=== PATIENT | female | born 1995 | race Caucasian/White ===

== ENCOUNTER 2018-07-10 22:22 | Emergency (ER) | payer MEDICAID, OTHER ==
[~2018-07-10] VITALS: Ht 167.6 cm; Wt 103.0 kg
[2018-07-10 22:41] LABS: BILIRUBIN,URINE NEGATIVE (NEG); CLARITY,URINE CLOUDY; COLOR,URINE RED; NITRITE,URINE NEGATIVE (NEG); PROTEIN,URINE 30 mg/dL (NEG-TRACE)
[2018-07-10 22:53] LABS: BACTERIA,URINE MODERATE /HPF (0-FEW); RBC,URINE TNTC /HPF (0-2); SQUAMOUS EPITHELIAL CELL,UR MOD /LPF
[2018-07-10 23:13] LABS: BASO % 1 % (0-3); EOS # 0.1 x10^3/uL (0.0-0.7); EOS % 1 % (0-3); HEMATOCRIT 42.6 % (36.0-47.0); HEMOGLOBIN 14.5 g/dL (12.0-15.5); LYMPH # 1.8 x10^3/uL (1.0-4.8); LYMPH % 22 % (24-48); MEAN CORPUSCULAR HEMOGLOBIN 31 pg (25-35); MEAN CORPUSCULAR HGB CONC 34 g/dL (31-37); MEAN CORPUSCULAR VOLUME 90 fL (79-100); MONO # 0.7 x10^3/uL (0.0-1.1); MONO % 8 % (0-9); NEUT # 5.7 x10^3uL (1.8-7.7); NEUT % 68 % (31-73); PLATELET COUNT 232 x10^3/uL (140-400); RED BLOOD COUNT 4.72 x10^6/uL (3.50-5.40); RED CELL DISTRIBUTION WIDTH 12.9 % (11.5-14.5); WHITE BLOOD COUNT 8.3 x10^3/uL (4.0-11.0)
[2018-07-10 23:17] LABS: CALCIUM 8.8 mg/dL (8.5-10.1); CREATININE 0.8 mg/dL (0.6-1.0); GFR 87.4; POTASSIUM 3.9 mmol/L (3.5-5.1)
[2018-07-10 23:18] LABS: PROTHROMBIN TIME PATIENT 13.3 SEC (11.7-14.0)
--- NOTE | 2018-07-10 23:19 | PHYS DOC ---
Past Medical History Past Medical History: No Pertinent History Past Surgical History: No Surgical History Alcohol Use: None Drug Use: None Adult General Chief Complaint Chief Complaint: VAGINAL BLEEDING HPI HPI Patient is a 23-year-old female who presents with complaint of vaginal bleeding and cramping that started earlier this morning. Patient states that she has passed enough blood to soaked through a pad. She states that initially it was just spotting but has progressively increased throughout the day. She also reports to lower abdominal cramping that currently she rates at a 3 out of 10. She denies any nausea or vomiting. Review of Systems Review of Systems Constitutional: Denies fever or chills [] Respiratory: Denies cough or shortness of breath [] Cardiovascular: No additional information not addressed in HPI [] GI: Denies abdominal pain, nausea, vomiting, bloody stools or diarrhea [] : Complains of pelvic pain and vaginal bleeding[] Neurologic: Denies headache, focal weakness or sensory changes [] All other systems were reviewed and found to be within normal limits, except as documented in this note. Allergies Allergies Allergies Coded Allergies Type Severity Reaction Last Updated Verified No Known Drug Allergies 05/09/15 No Physical Exam Physical Exam Constitutional: Well developed, well nourished, no acute distress, non-toxic appearance. [] HENT: Normocephalic, atraumatic, bilateral external ears normal, oropharynx moist, no oral exudates, nose normal. [] Eyes: PERRLA, EOMI, conjunctiva normal, no discharge. [] Neck: Normal range of motion, no tenderness, supple, no stridor. [] Cardiovascular: Regular rate and rhythm[] Lungs & Thorax: Bilateral breath sounds clear to auscultation [] Abdomen: Bowel sounds normal, soft, no tenderness. [] Skin: Warm, dry, no erythema, no rash. [] Extremities: No tenderness, no cyanosis, no clubbing, ROM intact, no edema. [] Neurologic: Alert and oriented X 3, normal motor function, normal sensory function, no focal deficits noted. [] Current Patient Data Vital Signs Vital Signs Date Time Temp Pulse Resp B/P (MAP) Pulse Ox O2 Delivery O2 Flow Rate FiO2 07/11/18 01:09 98.2 85 15 111/71 98.2 07/11/18 00:00 96 Room Air Lab Values Laboratory Tests Test 07/10/18 22:24 07/10/18 22:34 07/10/18 23:00 Urine Collection Type Unknown Urine Color Red Urine Clarity Cloudy Urine pH 6.0 Urine Specific [place] 1.020 Urine Protein 30 mg/dL (NEG-TRACE) Urine Glucose (UA) Negative mg/dL (NEG) Urine Ketones (Stick) Negative mg/dL (NEG) Urine Blood Large (NEG) Urine Nitrite Negative (NEG) Urine Bilirubin Negative (NEG) Urine Urobilinogen Dipstick 1.0 mg/dL (0.2 mg/dL) Urine Leukocyte Esterase Small (NEG) Urine RBC Tntc /HPF (0-2) Urine WBC 1-4 /HPF (0-4) Urine Squamous Epithelial Cells Mod /LPF Urine Bacteria Moderate /HPF (0-FEW) Urine Mucus Mod /LPF POC Urine HCG, Qualitative Hcg positive (Negative) White Blood Count 8.3 x10^3/uL (4.0-11.0) Red Blood Count 4.72 x10^6/uL (3.50-5.40) Hemoglobin 14.5 g/dL (12.0-15.5) Hematocrit 42.6 % (36.0-47.0) Mean Corpuscular Volume 90 fL (79-100) Mean Corpuscular Hemoglobin 31 pg (25-35) Mean Corpuscular Hemoglobin Concent 34 g/dL (31-37) Red Cell Distribution Width 12.9 % (11.5-14.5) Platelet Count 232 x10^3/uL (140-400) Neutrophils (%) (Auto) 68 % (31-73) Lymphocytes (%) (Auto) 22 % (24-48) L Monocytes (%) (Auto) 8 % (0-9) Eosinophils (%) (Auto) 1 % (0-3) Basophils (%) (Auto) 1 % (0-3) Neutrophils # (Auto) 5.7 x10^3uL (1.8-7.7) Lymphocytes # (Auto) 1.8 x10^3/uL (1.0-4.8) Monocytes # (Auto) 0.7 x10^3/uL (0.0-1.1) Eosinophils # (Auto) 0.1 x10^3/uL (0.0-0.7) Basophils # (Auto) 0.0 x10^3/uL (0.0-0.2) Prothrombin Time 13.3 SEC (11.7-14.0) Prothrombin Time INR 1.0 (0.8-1.1) Sodium Level 141 mmol/L (136-145) Potassium Level 3.9 mmol/L (3.5-5.1) Chloride Level 104 mmol/L (98-107) Carbon Dioxide Level 25 mmol/L (21-32) Anion Gap 12 (6-14) Blood Urea Nitrogen 12 mg/dL (7-20) Creatinine 0.8 mg/dL (0.6-1.0) Estimated GFR (Cockcroft-Gault) 87.4 BUN/Creatinine Ratio 15 (6-20) Glucose Level 87 mg/dL (70-99) Calcium Level 8.8 mg/dL (8.5-10.1) Total Bilirubin 0.3 mg/dL (0.2-1.0) Aspartate Amino Transferase (AST) 14 U/L (15-37) L Alanine Aminotransferase (ALT) 18 U/L (14-59) Alkaline Phosphatase 67 U/L (46-116) Total Protein 7.3 g/dL (6.4-8.2) Albumin 4.0 g/dL (3.4-5.0) Albumin/Globulin Ratio 1.2 (1.0-1.7) Laboratory Tests 07/10/18 23:00 Laboratory Tests 07/10/18 23:00 EKG EKG [] Radiology/Procedures Radiology/Procedures [] Impressions: PROCEDURE: OB <14 WKS W/TV CLINICAL HISTORY: vag bleeding today, cramping COMPARISON: None available. TECHNIQUE: transabdominal and endovaginal sonography was performed FINDINGS: The uterus measures 7.1 x 5 x 5.8 cm An intrauterine gestational sac is present, although mildly oblong in shape. An embryo is identified .Cardiac activity is visualized and documented at a rate of 157 beats per minute. Small subchorionic hemorrhage is seen inferiorly. Based on a crown rump length averaging 1.16 cm, the estimated gestational age is 7 weeks, 2 days. Estimated date of delivery is 02/24/2019. The left ovary measures 2.3 x 1.5 x 1.8 cm. The right ovary measures 3.1 x 1.7 x 2.2 cm. Flow is seen bilaterally to the ovaries. There is no pelvic free fluid. IMPRESSION: 1. Single live intrauterine gestation with mean sonographic age of 7 weeks, 2 days. The estimated date of delivery is 02/24/2019. Of note, the gestational sac is mildly oblong, possibly an incidental finding. 2. Small subchorionic hemorrhage is seen. 3. No abnormal adnexal masses. Electronically signed by: Adalberto Cooper MD (07/11/2018 12:35 AM) [facility] Course & Med Decision Making Course & Med Decision Making Pertinent Labs and Imaging studies reviewed. (See chart for details) [] Dragon Disclaimer Dragon Disclaimer This electronic medical record was generated, in whole or in part, using a voice recognition dictation system. Departure Departure Impression: Primary Impression: Threatened Disposition: 01 HOME, SELF-CARE Condition: STABLE Referrals: ELKE ROGERS MD (PCP) Patient Instructions: Threatened Miscarriage SABIHA MACIAS Jr. DO Jul 10, 2018 23:19
[2018-07-10 23:23] LABS: ALBUMIN/GLOBULIN RATIO 1.2 (1.0-1.7); TOTAL BILIRUBIN 0.3 mg/dL (0.2-1.0); TOTAL PROTEIN 7.3 g/dL (6.4-8.2)
--- NOTE | 2018-07-11 00:38 | RAD ---
CLINICAL HISTORY: vag bleeding today, cramping COMPARISON: None available. TECHNIQUE: transabdominal and endovaginal sonography was performed FINDINGS: The uterus measures 7.1 x 5 x 5.8 cm An intrauterine gestational sac is present, although mildly oblong in shape. An embryo is identified .Cardiac activity is visualized and documented at a rate of 157 beats per minute. Small subchorionic hemorrhage is seen inferiorly. Based on a crown rump length averaging 1.16 cm, the estimated gestational age is 7 weeks, 2 days. Estimated date of delivery is 02/24/2019. The left ovary measures 2.3 x 1.5 x 1.8 cm. The right ovary measures 3.1 x 1.7 x 2.2 cm. Flow is seen bilaterally to the ovaries. There is no pelvic free fluid. IMPRESSION: 1. Single live intrauterine gestation with mean sonographic age of 7 weeks, 2 days. The estimated date of delivery is 02/24/2019. Of note, the gestational sac is mildly oblong, possibly an incidental finding. 2. Small subchorionic hemorrhage is seen. 3. No abnormal adnexal masses. Electronically signed by: Adalberto Cooper MD (07/11/2018 12:35 AM) [facility]
[2018-07-11 01:09] VITALS: BP 111/71
[2018-07-11 01:30] VITALS: BP 119/59
== END 2018-07-11 01:46 | disposition home or self-care (01) ==
LOC: ER 22:22
DX: O20.0 Threatened abortion (principal); Z3A.01 Less than 8 weeks gestation of pregnancy
CPT/HCPCS: 36415; 36430; 76801; 76817; 80053; 81001; 81025; 85025; 85610; 86850; 86900; 86901; 87086; 99285; J2791

== ENCOUNTER 2019-02-22 23:42 | Emergency (ER) | payer OTHER ==
[~2019-02-22] VITALS: Ht 167.6 cm; Wt 103.0 kg
--- NOTE | 2019-02-23 00:23 | PHYS DOC ---
Past Medical History Past Medical History: No Pertinent History Past Surgical History: No Surgical History Alcohol Use: None Drug Use: None Adult General Chief Complaint Chief Complaint: ABDOMINAL PAIN IN HPI HPI Patient is a 23-year-old female who presents with report that she thinks she is leaking amniotic fluid. Patient is a A1 at 16 weeks gestational age and she states that over the last 24 hours she has noticed that her underwear are getting damp. She denies any abdominal pain, cramping or vaginal bleeding. She just states that every time she goes to the bathroom, she notices that her underwear or damp.[] Review of Systems Review of Systems Constitutional: Denies fever or chills [] Respiratory: Denies cough or shortness of breath [] Cardiovascular: No additional information not addressed in HPI [] GI: Denies abdominal pain, nausea, vomiting, bloody stools or diarrhea [] : Denies dysuria or hematuria [] Neurologic: Denies headache, focal weakness or sensory changes [] All other systems were reviewed and found to be within normal limits, except as documented in this note. Allergies Allergies Allergies Coded Allergies Type Severity Reaction Last Updated Verified No Known Drug Allergies 05/09/15 No Physical Exam Physical Exam Constitutional: Well developed, well nourished, no acute distress, non-toxic appearance. [] HENT: Normocephalic, atraumatic, bilateral external ears normal, oropharynx moist, no oral exudates, nose normal. [] Eyes: PERRLA, EOMI, conjunctiva normal, no discharge. [] Neck: Normal range of motion, no tenderness, supple, no stridor. [] Cardiovascular: Regular rate and rhythm[] Lungs & Thorax: Bilateral breath sounds clear to auscultation [] Abdomen: Bowel sounds normal, soft, no tenderness. [] Skin: Warm, dry, no erythema, no rash. [] Extremities: No tenderness, no cyanosis, no clubbing, ROM intact. [] Neurologic: Alert and oriented X 3, no focal deficits noted. [] Current Patient Data Vital Signs Vital Signs Date Time Temp Pulse Resp B/P (MAP) Pulse Ox O2 Delivery O2 Flow Rate FiO2 02/23/19 02:10 78 14 121/65 (83) 98 Room Air 02/23/19 00:10 97.6 97.6 Lab Values Laboratory Tests Test 02/23/19 00:05 02/23/19 00:20 02/23/19 00:48 Urine Collection Type Unknown Urine Color Yellow Urine Clarity Clear Urine pH 6.5 Urine Specific [place] 1.015 Urine Protein Negative mg/dL (NEG-TRACE) Urine Glucose (UA) Negative mg/dL (NEG) Urine Ketones (Stick) Negative mg/dL (NEG) Urine Blood Negative (NEG) Urine Nitrite Negative (NEG) Urine Bilirubin Negative (NEG) Urine Urobilinogen Dipstick 1.0 mg/dL (0.2 mg/dL) Urine Leukocyte Esterase Negative (NEG) Urine RBC Occ /HPF (0-2) Urine WBC 1-4 /HPF (0-4) Urine Squamous Epithelial Cells Mod /LPF Urine Bacteria Moderate /HPF (0-FEW) Urine Mucus Slight /LPF White Blood Count 7.9 x10^3/uL (4.0-11.0) Red Blood Count 4.00 x10^6/uL (3.50-5.40) Hemoglobin 12.7 g/dL (12.0-15.5) Hematocrit 35.5 % (36.0-47.0) L Mean Corpuscular Volume 89 fL (79-100) Mean Corpuscular Hemoglobin 32 pg (25-35) Mean Corpuscular Hemoglobin Concent 36 g/dL (31-37) Red Cell Distribution Width 13.0 % (11.5-14.5) Platelet Count 201 x10^3/uL (140-400) Neutrophils (%) (Auto) 65 % (31-73) Lymphocytes (%) (Auto) 25 % (24-48) Monocytes (%) (Auto) 8 % (0-9) Eosinophils (%) (Auto) 1 % (0-3) Basophils (%) (Auto) 0 % (0-3) Neutrophils # (Auto) 5.1 x10^3/uL (1.8-7.7) Lymphocytes # (Auto) 2.0 x10^3/uL (1.0-4.8) Monocytes # (Auto) 0.7 x10^3/uL (0.0-1.1) Eosinophils # (Auto) 0.1 x10^3/uL (0.0-0.7) Basophils # (Auto) 0.0 x10^3/uL (0.0-0.2) Sodium Level 142 mmol/L (136-145) Potassium Level 3.8 mmol/L (3.5-5.1) Chloride Level 108 mmol/L (98-107) H Carbon Dioxide Level 23 mmol/L (21-32) Anion Gap 11 (6-14) Blood Urea Nitrogen 10 mg/dL (7-20) Creatinine 0.7 mg/dL (0.6-1.0) Estimated GFR (Cockcroft-Gault) 102.0 BUN/Creatinine Ratio 14 (6-20) Glucose Level 89 mg/dL (70-99) Calcium Level 9.0 mg/dL (8.5-10.1) Total Bilirubin 0.2 mg/dL (0.2-1.0) Aspartate Amino Transferase (AST) 11 U/L (15-37) L Alanine Aminotransferase (ALT) 14 U/L (14-59) Alkaline Phosphatase 49 U/L (46-116) Total Protein 6.9 g/dL (6.4-8.2) Albumin 3.5 g/dL (3.4-5.0) Albumin/Globulin Ratio 1.0 (1.0-1.7) Amniotic Fluid Swab Test Negative Laboratory Tests 02/23/19 00:20 Laboratory Tests 02/23/19 00:20 EKG EKG [] Radiology/Procedures Radiology/Procedures [] Impressions: REASON: @ 16wks; ? leaking amniotic fluid PROCEDURE: OB LIMITED Obstetric ultrasound limited: Reason for examination: 3 para 1. 16 weeks gestational age. Evaluate for leaking amniotic fluid. Cervix length is normal at 4.3 cm and the cervix appears to be closed. Single viable intrauterine gestation is present with the cardiac rate of 168 bpm. Fetus appears to be in breech presentation. Placenta appears to be anterior fundal and grade 1 with no previa or abruption. Adequate amniotic fluid appears be present. motion was present. Biparietal diameter is 3.15 cm corresponding to gestational age of 15 weeks 6 days. Head circumference was 12.14 cm corresponding to gestational age of 16 weeks 0 days. Abdominal circumference 9.99 cm corresponding to gestational age of 16 weeks 0 days. Femur length 2.23 cm corresponding to gestational age of 16 weeks 5 days. Head circumference to abdominal circumference ratio is normal at 1.22. Estimated weight 152 g. Estimated gestational age by ultrasound is 16 weeks 1 day with estimated date of confinement of 08/09/2019. IMPRESSION: Single viable intrauterine gestation present with a mean gestational age estimated at 16 weeks 1 day with estimated date of confinement of 08/01/2019. Adequate amniotic fluid appears to be present. Electronically signed by: Otilia Martinez MD (02/23/2019 2:43 AM) [facility] DICTATED and SIGNED BY: OTILIA MARTINEZ MD DATE: 02/23/19 0243 Course & Med Decision Making Course & Med Decision Making Pertinent Labs and Imaging studies reviewed. (See chart for details) [] Dragon Disclaimer Dragon Disclaimer This electronic medical record was generated, in whole or in part, using a voice recognition dictation system. Departure Departure Impression: Primary Impression: Additional Impression: Stress incontinence during Disposition: 01 HOME, SELF-CARE Condition: STABLE Referrals: ELKE ROGRES MD (PCP) Patient Instructions: Problem Qualifiers Primary Impression: Weeks of gestation: 16 weeks Qualified Codes: Z3A.16 - 16 weeks gestation of SABIHA MACIAS Jr. DO Feb 23, 2019 00:23
[2019-02-23 00:25] LABS: BILIRUBIN,URINE NEGATIVE (NEG); CLARITY,URINE CLEAR; COLOR,URINE YELLOW; NITRITE,URINE NEGATIVE (NEG); PH,URINE 6.5; PROTEIN,URINE NEGATIVE (NEG-TRACE)
[2019-02-23 00:30] LABS: BACTERIA,URINE MODERATE /HPF (0-FEW); RBC,URINE OCC /HPF (0-2); SQUAMOUS EPITHELIAL CELL,UR MOD /LPF
[2019-02-23 00:30] LABS: BASO % 0 % (0-3); EOS # 0.1 x10^3/uL (0.0-0.7); EOS % 1 % (0-3); HEMATOCRIT 35.5 % (36.0-47.0); HEMOGLOBIN 12.7 g/dL (12.0-15.5); LYMPH % 25 % (24-48); MEAN CORPUSCULAR HEMOGLOBIN 32 pg (25-35); MEAN CORPUSCULAR HGB CONC 36 g/dL (31-37); MEAN CORPUSCULAR VOLUME 89 fL (79-100); MONO # 0.7 x10^3/uL (0.0-1.1); MONO % 8 % (0-9); NEUT # 5.1 x10^3/uL (1.8-7.7); NEUT % 65 % (31-73); PLATELET COUNT 201 x10^3/uL (140-400); WHITE BLOOD COUNT 7.9 x10^3/uL (4.0-11.0)
[2019-02-23 00:42] LABS: CREATININE 0.7 mg/dL (0.6-1.0); POTASSIUM 3.8 mmol/L (3.5-5.1)
[2019-02-23 00:48] LABS: ALBUMIN 3.5 g/dL (3.4-5.0); TOTAL BILIRUBIN 0.2 mg/dL (0.2-1.0); TOTAL PROTEIN 6.9 g/dL (6.4-8.2)
[2019-02-23 01:04] LABS: AMNIO PT NEGATIVE
[2019-02-23 02:10] VITALS: BP 121/65
--- NOTE | 2019-02-23 02:46 | RAD ---
Obstetric ultrasound limited: Reason for examination: 3 para 1. 16 weeks gestational age. Evaluate for leaking amniotic fluid. Cervix length is normal at 4.3 cm and the cervix appears to be closed. Single viable intrauterine gestation is present with the cardiac rate of 168 bpm. Fetus appears to be in breech presentation. Placenta appears to be anterior fundal and grade 1 with no previa or abruption. Adequate amniotic fluid appears be present. motion was present. Biparietal diameter is 3.15 cm corresponding to gestational age of 15 weeks 6 days. Head circumference was 12.14 cm corresponding to gestational age of 16 weeks 0 days. Abdominal circumference 9.99 cm corresponding to gestational age of 16 weeks 0 days. Femur length 2.23 cm corresponding to gestational age of 16 weeks 5 days. Head circumference to abdominal circumference ratio is normal at 1.22. Estimated weight 152 g. Estimated gestational age by ultrasound is 16 weeks 1 day with estimated date of confinement of 08/09/2019. IMPRESSION: Single viable intrauterine gestation present with a mean gestational age estimated at 16 weeks 1 day with estimated date of confinement of 08/01/2019. Adequate amniotic fluid appears to be present. Electronically signed by: Otilia Jeong MD (02/23/2019 2:43 AM) [facility]
== END 2019-02-23 02:17 | disposition home or self-care (01) ==
LOC: ER 23:42
DX: O99.89 Other specified diseases and conditions complicating pregnancy, childbirth and the puerperium (principal); N39.3 Stress incontinence (female) (male); Z3A.16 16 weeks gestation of pregnancy
CPT/HCPCS: 36415; 76815; 80053; 81001; 84112; 85025; 87086; 99285-25